=== PATIENT | male | born 1985 | race Caucasian/White ===

== ENCOUNTER 2021-10-04 06:37 | Emergency (ER) | payer OTHER ==
[~2021-10-04] VITALS: Ht 190.5 cm; Wt 92.8 kg
[2021-10-04] MEDS ORDERED: ibuprofen tablet 400 MG TABLET PO ONE (08:05)
[2021-10-04] MEDS ORDERED: CEFTRIAXONE 500 MG VIAL IM ONE (08:40)
[2021-10-04] MEDS ORDERED: DOXY100C43 PO (08:41)
[2021-10-04] MEDS ORDERED: CefTRIAXone 500MG IM Kit w/LIDOcaine IM ONE (08:45)
[2021-10-04 09:40] VITALS: BP 150/95
[2021-10-04 10:08] LABS: CLARITY,URINE SLIGHTLY CLOUDY (Clear); COLOR,URINE YELLOW (Yellow); GLUCOSE, URINE NEGATIVE (Neg); KETONES,URINE NEGATIVE (Neg); PROTEIN,URINE TRACE mg/dl (Neg); UA COLLECTION TYPE VOIDED
[2021-10-04 10:09] LABS: LEUKOCYTE ESTERASE ,URINE SMALL (Neg); NITRITES, URINE NEGATIVE (Neg); OCCULT BLOOD,URINE TRACE-INTACT (Neg); UROBILINOGEN,URINE 0.2 E.U/dL (0.2-1.0)
[2021-10-04 10:41] LABS: BACTERIA,URINE NONE SEEN /HPF (Neg); RBC,URINE 0-2 /HPF (0-2); SQUAMOUS EPITHELIAL CELL,UR FEW /LPF (FEW)
== END 2021-10-04 09:42 | disposition home or self-care (01) ==
LOC: ER 06:39
DX: N45.1 Epididymitis (principal); N50.811 Right testicular pain; F12.90 Cannabis use, unspecified, uncomplicated; F17.210 Nicotine dependence, cigarettes, uncomplicated; Z79.2 Long term (current) use of antibiotics
CPT/HCPCS: 76870; 81001; 93976; 96372; 99284; J0696